=== PATIENT | female | born 1955 | race Two or more races ===

== ENCOUNTER 2022-02-09 22:03 | Inpatient (IN) | payer OTHER ==
[~2022-02-09] VITALS: Ht 167.6 cm; Wt 58.6 kg
[2022-02-09 22:44] LABS: Basophils # (auto) 0 10 ^3/uL (0-0.2); Basophils % (auto) 0.3 % (0.0-2.0); Eosinophils # (auto) 0 10 ^3/uL (0-0.8); Eosinophils % (auto) 0.3 % (0.0-7.0); Hematocrit 41.1 % (36.0-46.0); Hemoglobin 13.9 g/dL (12.2-16.2); Lymphocytes # (auto) 1.6 10 ^3/uL (0.4-5.4); Lymphocytes % (auto) 21.2 % (10.0-50.0); Mean Corpuscular Hemoglobin 30.6 pg (28.0-32.0); Mean Corpuscular Hgb Conc. 33.8 g/dL (32.0-36.0); Mean Corpuscular Volume 90.5 fL (80.0-100.0); Monocytes # (auto) 0.6 10 ^3/uL (0-1.3); Monocytes % (auto) 8.2 % (0.0-12.0); Neutrophils # (auto) 5.3 10 ^3/uL (1.6-8.6); Nucleated Red Blood Cells % 0.1 %; Red Blood Cells 4.54 10^6/uL (4.0-5.20); Red Cell Distribution Width 13.2 % (11.8-14.3); White Blood Cell 7.6 10^3/uL (4.4-10.8)
[2022-02-09] MEDS ORDERED: ONDANSETRON HCL 4 MG/2 ML VIAL IV ONE (22:45)
[2022-02-09] MEDS ORDERED: MORPHINE SULFATE 4 MG/ML SYR/VIAL IV ONE (22:45)
[2022-02-09 23:05] LABS: Albumin 3.9 g/dL (3.4-5.0); Calcium 9.4 mg/dL (8.5-10.1)
[2022-02-09 23:09] LABS: Total Protein 7.8 g/dL (6.4-8.2)
[2022-02-09 23:14] LABS: Potassium 2.8 mmol/L (3.5-5.1)
[2022-02-09 23:30] LABS: Bilirubin, Total 1.1 mg/dL (0.2-1.0)
[2022-02-09] MEDS ORDERED: POTASSIUM CHL 20 Meq TABLET PO ONE (23:45)
[2022-02-09] MEDS ORDERED: POTASSIUM CHL 20MEQ/100ML 100 ML IV ONE (23:45)
[2022-02-09 23:57] LABS: BUN/Creatinine Ratio 18.1
[2022-02-10] MEDS ORDERED: PIPERACILLIN-TAZOB 3.375GM 100 ML IV ONE
[2022-02-10] MEDS ORDERED: SODIUM CHLORIDE 0.9% 2,450 ML IV ONE
[2022-02-10] MEDS ORDERED: ALUM & MAG HYDROX-SIMETH LIQ(MAALOX) 30 ML PO PRN (01:15)
[2022-02-10] MEDS ORDERED: ACETAMINOPHEN 325 MG TAB PO PRN (01:15)
[2022-02-10] MEDS ORDERED: DOCUSATE SOD 100 MG CAP PO PRN (01:15)
[2022-02-10] MEDS ORDERED: MORPHINE SULFATE INJ 2 MG/ml SYRG IV PRN (01:15)
[2022-02-10] MEDS ORDERED: ONDANSETRON HCL 4 MG/2 ML VIAL IV PRN (01:15)
[2022-02-10] MEDS ORDERED: TEMAZEPAM 15 MG CAP PO PRN (01:15)
[2022-02-10] MEDS ORDERED: LORazepam 0.5 MG TAB PO PRN (01:15)
[2022-02-10 01:28] LABS: Lactic Acid w/Reflex 2.2 mmol/L (0.4-2.0)
[2022-02-10] MEDS: SODIUM CHLORIDE 0.9% 1,000 ML IV SCH ×5 (02:01→21:41)
[2022-02-10 04:41] LABS: Basophils # (auto) 0 10 ^3/uL (0-0.2); Basophils % (auto) 0.3 % (0.0-2.0); Eosinophils # (auto) 0 10 ^3/uL (0-0.8); Eosinophils % (auto) 0.4 % (0.0-7.0); Lymphocytes # (auto) 1.6 10 ^3/uL (0.4-5.4); Lymphocytes % (auto) 23.7 % (10.0-50.0); Mean Corpuscular Hemoglobin 30.2 pg (28.0-32.0); Mean Corpuscular Hgb Conc. 33.2 g/dL (32.0-36.0); Mean Corpuscular Volume 90.8 fL (80.0-100.0); Monocytes # (auto) 0.5 10 ^3/uL (0-1.3); Monocytes % (auto) 8.2 % (0.0-12.0); Neutrophils # (auto) 4.4 10 ^3/uL (1.6-8.6); Neutrophils % (auto) 67.4 % (37.0-80.0); Red Cell Distribution Width 13.3 % (11.8-14.3); White Blood Cell 6.6 10^3/uL (4.4-10.8)
[2022-02-10 04:51] LABS: BUN/Creatinine Ratio 13.8; Calcium 8.4 mg/dL (8.5-10.1); Potassium 3.9 mmol/L (3.5-5.1)
[2022-02-10 09:00] VITALS: BP 135/66
[2022-02-10] MEDS: PIPERACILLIN-TAZOB 3.375GM 100 ML IV SCH ×2 (09:52→17:45)
[2022-02-10 13:00] VITALS: BP 159/59
[2022-02-10 13:44] VITALS: BP 124/69
[2022-02-10 17:00] VITALS: BP 127/62
[2022-02-10 22:00] VITALS: BP 127/51
[2022-02-11] MEDS: PIPERACILLIN-TAZOB 3.375GM 100 ML IV SCH ×3 (02:00→16:58)
[2022-02-11] MEDS: SODIUM CHLORIDE 0.9% 1,000 ML IV SCH ×2 (02:28→07:27)
[2022-02-11 05:00] VITALS: BP 124/52
[2022-02-11] MEDS: PANTOPRAZOLE 40 MG/10 ML VIAL INJ IV SCH (08:13)
[2022-02-11 08:47] LABS: Hepatitis B Surface Antibody Negative (Negative)
[2022-02-11 09:18] VITALS: BP 128/73
[2022-02-11 09:24] LABS: Hepatitis A Total Antibody Positive (Negative)
[2022-02-11 12:03] LABS: Hepatitis C Antibody Negative (Negative)
[2022-02-11 13:00] VITALS: BP 129/76
[2022-02-11] MEDS: D5W/SOD CHL 0.45% 1,000 ML IV SCH ×2 (13:02→21:00)
[2022-02-11 17:20] VITALS: BP 144/45
[2022-02-11 22:00] VITALS: BP 134/66
[2022-02-12] MEDS: PIPERACILLIN-TAZOB 3.375GM 100 ML IV SCH ×3 (01:00→09:22)
[2022-02-12 05:00] VITALS: BP 146/73
[2022-02-12] MEDS: D5W/SOD CHL 0.45% 1,000 ML IV SCH (06:27)
[2022-02-12 09:10] VITALS: BP 132/71
[2022-02-12] MEDS: PANTOPRAZOLE 40 MG/10 ML VIAL INJ IV SCH (09:21)
[2022-02-12] MEDS ORDERED: METR500T PO (10:02)
[2022-02-12] MEDS ORDERED: PANT40T PO (10:02)
[2022-02-12] MEDS ORDERED: LEVO500T31 PO (10:02)
[2022-02-12 10:18] VITALS: BP 132/71
== END 2022-02-12 12:05 | disposition home or self-care (01) | DRG 282 ==
LOC: EDBD 22:03 → ER 22:05 → OVERFLOW 02-10 01:22 → EAST 02-10 04:45
PROVIDERS: ADMIT Hospitalist; ATTEND Family Medicine
DX: K85.10 Biliary acute pancreatitis without necrosis or infection (principal); E86.0 Dehydration; E87.6 Hypokalemia; G43.909 Migraine, unspecified, not intractable, without status migrainosus; Z20.822 Contact with and (suspected) exposure to COVID-19; R79.89 Other specified abnormal findings of blood chemistry; Z90.710 Acquired absence of both cervix and uterus; Z90.49 Acquired absence of other specified parts of digestive tract; Z88.6 Allergy status to analgesic agent; Z88.8 Allergy status to other drugs, medicaments and biological substances
CPT/HCPCS: 36415; 74181; 76705; 80048; 80053; 80320; 83605; 83690; 84484; 85025; 86704; 86706; 86708; 86803; 87040; 87340; 87426; 93005; 96365; 96366; 96368; 96375; C9113; G0378; J2405; J2543; J3480